=== PATIENT | female | born 1960 | race Caucasian/White ===

== ENCOUNTER 2017-08-29 14:44 | Emergency (ER) | payer BC ==
[~2017-08-29] VITALS: Ht 167.6 cm; Wt 108.9 kg
[~2017-08-29 14:44] MED LIST: CEFDINIR 300MG300 MG PO; FLONASE 50 MCG16 GM
--- OUTSIDE RECORDS SUMMARY | 2017-08-29 14:48 | External Medical Summary Rpt | CCD ---
Demographics Preferred Language Welsh Marital Status Unknown [employer] Affiliation Unknown Race Unknown Ethnic Group Unknown Author Author , MARIA G CUMMINS Address Unknown Phone maria Immunization No patient found.
--- OUTSIDE RECORDS SUMMARY | 2017-08-29 14:48 | External Medical Summary Rpt | CCD ---
Author Author [facility] Organization [facility] Address Unknown Phone Unavailable Purpose Continuity of Care Document - through 2016
--- OUTSIDE RECORDS SUMMARY | 2017-08-29 14:48 | External Medical Summary Rpt | CCD ---
Demographics Preferred Language Lithuanian Marital Status Unknown Episcopal Affiliation Unknown Race Unknown Ethnic Group Unknown Author Author , MARIA G CUMMINS Address Unknown Phone maria Immunization No patient found.
--- NOTE | 2017-08-29 15:47 | Urgent Treatment Center Report ---
History of Present Issue Date/Time Seen by Provider 08/29/17 1546 Visit Reason Pt arrived:Walked Presenting Problem:C/O BILATERAL EAR PAIN AND SINUS CONGESTION Location if Accident: Onset of symptoms date/time:/ or onset unknown for:MEDICAL HX UNKNOWN Have you (or family members/close friends) recently traveled outside the [place]? N If Yes, where/when: Have you had exposure to infectious disease within the past month? TB? Other? Specify: Source patient, RN notes reviewed Exam Limitations no limitations Comment 1 week history of bilateral ear pain, sinus pain and pressure, sore throat. No vomiting or diarrhea. No fever, but has chilled and feels achy. Zyrtec hasn't helped. ALLERGIES Coded Allergies: Penicillins (Mild, 03/06/17) Sulfa (Sulfonamide Antibiotics) (Mild, 03/06/17) History Medical History General CAD? No Angina: No DE: No Hypertension? Yes Hyperlipidemia? Yes CHF? No DVT? No PE? No COPD? No Asthma? Yes Anemia? No GERD? No Gastric ulcers? No GI Bleed? No Hernia? No Thyroid Problems? No Hypothyroidism? No CVA? No Seizures? No Diabetes? Yes Insulin Dependent: No Insulin Pump: No Home FSBS? Yes Renal Insuffiency? No UTI? No Stones? No BPH? No GB Disease: No Nephritic Syndrome? No Asplenia? No Hepatitis? No Sickle Cell Disease? No Arthritis? No Migraines? No Cataracts? No Glaucoma? No MRSA? No HIV? No TB? No Anxiety? No Depression? No Cancer? No More? No Immunization HX DT/Tetanus 1-4 YRS Surgical Hx Previous Surgery?Y TUBAL Social History Smoking Hx Smoker: Never Smoker Tobacco: No Alcohol Alcohol: No Review of Systems All Other Systems Reviewed and Negative ENT ear pain, nose discharge, nose congestion, throat pain. Physical Exam Vital Signs Vital Signs Date Time Temp Pulse Resp B/P Pulse O2 O2 Flow FiO2 Ox Delivery Rate 08/29 1542 98.6 74 20 162/55 99 General Appearance normal appearance, no apparent distress Ear, Nose, Throat hearing grossly normal, abnormal TM (R), abnormal TM (L), sinus pain/drainage, pharyngeal erythema Respiratory Status No: respiratory distress, trachea midline, chest symmetrical. Lung Sounds bilateral: normal breath sounds, lungs clear. Cardiovascular normal exam, regular rate/rhythm, no peripheral edema, no gallop, no JVD, no murmur, no rub Extremities non-tender, normal range of motion, normal inspection, normal capillary refill Neurologic alert, normal exam, oriented x 3 Mental status normal mood/affect Medical Decision Making LABS/Meds/Orders Pt receiving controlled substance in ED? No Departure Departure Time of Disposition 1547 Disposition DC Home or Self Care(routine) Clinical Impression Primary Impression: Sinusitis Qualifiers: Sinusitis location: maxillary Chronicity: acute Recurrence: non- recurrent Qualified Code: J01.00 - Acute maxillary sinusitis, unspecified Condition STABLE Referrals Bertin CARRERA,Michel (Family) Patient Instructions DI for Sinusitis Additional Instructions rest, fluids Discharge Counseling Counseled pt/family regarding diagnosis, medications/RX, home care, follow up needs Prescriptions Current Visit Scripts CEPHALEXIN (Keflex 500MG Capsule) 500 MG PO Q8H #30 CAP Fluticasone Propionate (Flonase 50 Mcg Nasal [place]) 1 SPRAY NA BID #1 BOT at 4483
[2017-08-29] MEDS ORDERED: FLONASE 50 MCG16 GM (15:48)
[2017-08-29] MEDS ORDERED: KEFLEX 500MG.500 MG PO (15:48)
[2017-08-29 15:50] VITALS: BP 162/55
== END 2017-08-29 15:51 | disposition home or self-care (01) ==
LOC: UTC 14:44
DX: J01.00 Acute maxillary sinusitis, unspecified (principal); E11.9 Type 2 diabetes mellitus without complications; J45.909 Unspecified asthma, uncomplicated; Z88.0 Allergy status to penicillin; Z88.2 Allergy status to sulfonamides